=== PATIENT | female | born 1945 | race Caucasian/White ===

== ENCOUNTER 2024-01-29 07:49 | Emergency (ER) | payer MEDICARE, OTHER, SELFPAY ==
[2024-01-29 07:50] VITALS: BP 112/80; PULSE 67; RESP 16; TEMP 36.4; O2SAT 100
[2024-01-29 08:00] VITALS: BP 112/80; PULSE 69; RESP 14; O2SAT 97
--- NOTE | 2024-01-29 08:15 | RAD_ITS ---
STUDY: X-RAY - RIGHT HAND REASON FOR EXAM: Female, 78 years old. Pain TECHNIQUE: 3 view(s) of the hand. COMPARISON: None. FINDINGS: There is joint space narrowing of the radiocarpal articulation consistent with degenerative arthrosis. Normal distal radioulnar joint. There is diffuse demineralization of the carpal bones. There is scapholunate widening. There is degenerative arthrosis of the carpometacarpal (CMC) articulation of the thumb. Normal second through fifth carpometacarpal joints. Normal metacarpi. Normal metacarpophalangeal joint of the thumb. Normal interphalangeal joint of the thumb. Normal proximal and distal phalanges of the thumb. Normal metacarpophalangeal joints of the second through fifth fingers. Normal proximal and distal interphalangeal joints of the second through fifth fingers. There is demineralization of the phalanges of the second through fifth fingers. The soft tissue structures are unremarkable. RAD/Hand Min 3 Views IMPRESSION: Degenerative change of the wrist. No fracture seen. Electronically Signed: Zoran Bangura MD at 9:33 EDT ,
[2024-01-29 08:31] LABS: INR Fingerstick 2.4
--- NOTE | 2024-01-29 09:42 | EX.ED.UPPERE ---
HPI History of Present Illness Chief Complaint: Upper Extremity Injury Informant: patient Onset/Context/Timing Onset: Days (3 days) Context: Gradual Onset Narrative Narrative: Patient presents with a 3-day history of right wrist and hand pain and swelling. She does not have any known injury. She went to [facility] last evening but sat in the waiting room for 9 hours and was never seen by a physician. She lab work and an x-ray done and they were able to review those findings online. Patient states while waiting to be seen yesterday, she noted some slight redness around her right wrist. She has not had fever. Patient is currently on Coumadin. [facility] Medical History (Updated 01/29/24 @ 12:[address] Dana Pond MD) Chronic kidney disease CHF (congestive heart failure) Hypertension Atrial fibrillation Home Medications ?Medication ?Instructions ?Recorded ?Last Taken ?Type omeprazole 40 mg capsule,delayed 40 mg PO DAILY 14 days #14 caps 01/29/24 Unknown Rx release prednisone 20 mg tablet 40 mg (2 x 20 mg) PO DAILY #8 tabs 01/29/24 Unknown Rx Allergy/AdvReac Type Severity Reaction Status Date / Time estradiol (From Estrace) Allergy Mild Other Verified 01/29/24 07:59 Iodinated Contrast Media Allergy Mild Hives Verified 01/29/24 07:59 (iodine dye) wheat Allergy Mild Diarrhea Verified 01/29/24 07:59 lisinopril Allergy Unknown Other Verified 01/29/24 08:21 apixaban (From Eliquis) AdvReac Severe Other Verified 01/29/24 08:21 hydromorphone (From Dilaudid) AdvReac Mild Other Verified 01/29/24 07:59 rosuvastatin (From Crestor) AdvReac Mild LEG CRAMPS Verified 01/29/24 07:59 amlodipine AdvReac Unknown Other Verified 01/29/24 08:21 atorvastatin (From Lipitor) AdvReac Unknown LEG PAIN Verified 01/29/24 07:59 carvedilol AdvReac Unknown Pain in Verified 01/29/24 08:21 joints digoxin AdvReac Unknown Other Verified 01/29/24 08:21 dofetilide (From Tikosyn) AdvReac Unknown OTHER Verified 01/29/24 08:00 losartan AdvReac Unknown Other Verified 01/29/24 08:21 warfarin (From Jantoven) AdvReac Unknown Other Verified 01/29/24 07:59 Social History Smoking Status: Never smoker ROS ROS ED Constitutional Constitutional ED: Denies chills or fever(s) Eyes Eyes: Denies change in vision ENT ENT ED: Denies rhinorrhea or sore throat Cardiovascular Cardiovascular: Denies chest pain Respiratory/Chest Respiratory/Chest: Denies cough or dyspnea Gastrointestinal Gastrointestinal: Denies abdominal pain, nausea or vomiting Musculoskeletal Musculoskeletal: Reports extremity pain; Denies back pain Integumentary Denies Abrasions or rash Neurologic Neurologic: Denies headache(s) or weakness Psychiatric Psychiatric: Denies anxiety or depression Allergic/Immunologic Allergic/Immunologic ED: Denies lip swelling or urticaria EXAM Physical Exam Const Vital Signs: 01/29/24 07:50 01/29/24 08:00 Temperature 97.6 F L Temperature Source Temporal Pulse Rate 67 69 Respiratory Rate 16 14 Blood Pressure 112/80 112/80 Blood Pressure Mean 90 90 Pulse Ox 100 97 Oxygen Delivery Method Room Air Room Air Positive well nourished and well developed General Appearance ED: well developed HEENT Reports moist mucous membranes Eyes EOMs intact bilaterally Chest Wall inspection of chest normal Resp normal respiratory effort and clear to auscultation bilaterally Cardio regular rhythm GI non-tender Extremity Extremity Narrative: Mild edema noted about the right wrist. Very minimal erythema. No excessive warmth. No lesions. Full range of motion at the wrist without difficulty. No tenderness at the elbow or shoulder. Good cap refill distally. MDM MDM MDM Narrative Medical decision making narrative: I was able to review the patient's lab work that was completed last evening. Her white count was 11.7 with 73% neutrophils. Hemoglobin is 13.0. Chemistry studies are unremarkable with normal renal function. CRP is elevated at 13.6 and sed rate is elevated at 99. Because a and INR was not obtained that was obtained on today's visit. We were able to do the fingerstick outpatient test and her INR returned at 2.4. Right wrist x-rays were obtained today to evaluate for any acute bony injury as I am not able to see the images that were obtained last evening. Right wrist x-ray per my interpretation feels arthritic chronic changes with no evidence of acute fracture. Radiology interpretation reviewed and agrees. Test results discussed with the patient and family. I do feel she has an inflammatory arthritis but she has no evidence of infection. Yossi wrap will be applied. She will be given a 4-day burst of prednisone. She was advised to eat when she takes the medication and I will also write her omeprazole to protect her stomach lining as well. Patient comfortable with the plan. Return instructions given. Lab Data Labs: Laboratory Results - last 24 hr 01/29/24 08:26 POC PT 25.0 H INR 2.4 Radiography Diagnostic Testing: Clinical Impression(s) from Imaging Studies Hand X-Ray 01/29/24 08:15 IMPRESSION: Degenerative change of the wrist. No fracture seen. Electronically Signed: Zoran Bangura MD at 9:33 EDT , Discharge Plan Triage Chief Complaint: Upper Extremity Injury ED Provider: Dana Pond Dx/Rx/DC Orders Clinical Impression: Inflammatory arthritis Instructions: ED Osteoarthritis Prescriptions: New prednisone 20 mg tablet 40 mg PO DAILY Qty: 8 0RF omeprazole 40 mg capsule,delayed release(DR/EC) 40 mg PO DAILY 14 Days Qty: 14 0RF Primary Care Provider: VISHAL SEAMAN Referrals: VISHAL SEAMAN MD [Primary Care Provider] - 1-2 Weeks Print Language: Sami Disposition Disposition: Home, Self Care Discharge Date/Time: 01/29/24 10:07
[2024-01-29 09:56] VITALS: BP 125/86; PULSE 82; RESP 18; TEMP 36.1; O2SAT 98
== END 2024-01-29 10:07 | disposition home or self-care (01) ==
PROVIDERS: Emergency Provider Emergency Medicine; PCP Internal Medicine; Visit Provider Emergency Medicine
DX: M06.4 Inflammatory polyarthropathy (principal); I13.0 Hypertensive heart and chronic kidney disease with heart failure and stage 1 through stage 4 chronic kidney disease, or unspecified chronic kidney disease; I50.9 Heart failure, unspecified; I48.91 Unspecified atrial fibrillation; Z79.01 Long term (current) use of anticoagulants; N18.9 Chronic kidney disease, unspecified
CPT/HCPCS: 36416; 73130; 85610; 99282